=== PATIENT | female | born 1995 | race Caucasian/White ===

== ENCOUNTER 2019-08-29 04:16 | Inpatient (IN) ==
[2019-08-29] MEDS ORDERED: CYTOTEC VAG ONE (04:20)
[2019-08-29] MEDS ORDERED: REGLAN PO ONE (04:20)
[2019-08-29] MEDS ORDERED: PEPCID PO PRN (04:20)
[2019-08-29] MEDS ORDERED: TYLENOL PO PRN (04:20)
[2019-08-29] MEDS ORDERED: STADOL IV PRN ×3 (04:20)
[2019-08-29] MEDS ORDERED: PEPCID PO ONE (04:20)
[2019-08-29] MEDS ORDERED: AMBIEN PO PRN ×2 (04:20→14:01)
[2019-08-29] MEDS ORDERED: BRETHINE SUBQ PRN (04:20)
[2019-08-29] MEDS ORDERED: ZOFRAN IV PRN (04:20)
[2019-08-29] MEDS ORDERED: PEPCID IV PRN (04:20)
[2019-08-29] MEDS ORDERED: KEFZOL 2 GM/D5W 2 GM/50 ML IVPB IV PRN (04:27)
[2019-08-29] MEDS ORDERED: XYLOCAINE-MPF 1% INJ PRN ×2 (04:27→14:01)
[2019-08-29] MEDS ORDERED: MINERAL OIL TOP PRN (04:27)
[2019-08-29] MEDS: LR 1,000 ML IV ONE ×2 (04:30→10:16)
[2019-08-29 04:42] LABS: URINE SOURCE VOIDED
[2019-08-29 04:45] LABS: BASO# 0.02 X1000 (0.0-0.2); BASO% 0.3 % (0.0-0.8); EOS# 0.08 X1000 (0.0-0.7); HEMATOCRIT 34.3 % (37.0-47.0); HEMOGLOBIN 11.6 g/dL (12.0-16.0); IMM GRAN# 0.06 X1000 (0.0-0.04); IMM GRAN% 0.8 % (0.0-0.5); LYMPH% 25.4 % (20.5-51.1); MCH 27.6 PG (27-31); MCHC 33.8 g/dL (33-37); MCV 81.7 FL (81-99); MONO# 0.64 X1000 (0.11-0.59); MONO% 8.1 % (1.7-9.3); MPV 10.9 FL (7.4-10.4); NEUT# 5.08 X1000 (1.4-6.5); NEUT% 64.4 % (42.2-75.2); PLT 169 X1000 (130-400); RDW 13.5 % (11.5-14.5); WBC 7.88 X1000 (4.8-10.8)
[2019-08-29 04:52] LABS: BILIRUBIN URINE NEGATIVE (NEGATIVE); BLOOD URINE NEGATIVE (NEGATIVE); COLOR YELLOW; GLUCOSE URINE NEGATIVE (NEGATIVE); KETONE URINE NEGATIVE (NEGATIVE); LEUKOCYTES URINE LARGE (NEGATIVE); NITRITE URINE NEGATIVE (NEGATIVE); PROTEIN URINE NEGATIVE (NEGATIVE); TURBIDITY URINE HAZY (CLEAR); UROBILINOGEN URINE NORMAL (NORMAL)
[2019-08-29 05:07] LABS: UR AMPHETAMINES QUAL NONE DETECTED (NONE DETECT); UR BARBITUATES QUAL NONE DETECTED (NONE DETECT); UR BENZODIAZEPIN QUAL NONE DETECTED (NONE DETECT); UR CANNABINOIDS QUAL NONE DETECTED (NONE DETECT); UR COCAINE QUAL NONE DETECTED (NONE DETECT); UR METHADONE QUAL NONE DETECTED (NONE DETECT); UR OPIATES QUAL NONE DETECTED (NONE DETECT); UR OXYCODONE QUAL NONE DETECTED (NONE DETECT); UR PCP QUAL NONE DETECTED (NONE DETECT)
[2019-08-29] MEDS ORDERED: PITOCIN 30 UNITS/NS 30 UNIT/500 ML IV.SOLN IV SCH ×2 (10:00→14:15)
[2019-08-29] MEDS ORDERED: FENTANYL-BUPIV-NS 500 MCG-0.125% 250 ML EPIDURAL PRN (10:12)
[2019-08-29] MEDS ORDERED: FENTANYL IV ONE (10:15)
[2019-08-29] MEDS ORDERED: NAROPIN 0.2% INJ ONE (10:15)
[2019-08-29] MEDS ORDERED: LR 3,000 ML ONE (10:16)
[2019-08-29] MEDS ORDERED: BENADRYL PO PRN (14:01)
[2019-08-29] MEDS ORDERED: BOOSTRIX VACCINE IM ONE (14:01)
[2019-08-29] MEDS ORDERED: HYDROXYZINE IM PRN (14:01)
[2019-08-29] MEDS ORDERED: MINERAL OIL PO PRN (14:01)
[2019-08-29] MEDS ORDERED: PERI MEDS (DERMOPLAST/NUPERCAINAL/TUCKS) MISC PRN (14:01)
[2019-08-29] MEDS ORDERED: M-M-R II VACCINE SUBQ ONE (14:01)
[2019-08-29] MEDS ORDERED: PITOCIN IM PRN (14:01)
[2019-08-29] MEDS ORDERED: CYTOTEC PO PRN (14:01)
[2019-08-29] MEDS ORDERED: BENADRYL IV PRN (14:01)
[2019-08-29] MEDS ORDERED: ATARAX PO PRN (14:01)
[2019-08-29] MEDS ORDERED: NORCO-5 PO PRN (14:01)
[2019-08-29] MEDS ORDERED: PITOCIN 20 UNITS/NS 20 UNITS/1,000 ML IV.SOLN IV SCH (14:15)
[2019-08-29] MEDS ORDERED: PITOCIN 20 UNITS/NS 20 UNITS/1,000 ML IV.SOLN ONE (14:20)
--- NOTE | 2019-08-29 14:28 | HISTORY AND PHYSICAL ---
HISTORY OF PRESENT ILLNESS: Mrs. Dorsey is a 23-year-old, G5, P3-0-1-3 at 39 weeks and 1 day who presents to Labor and Delivery for scheduled induction of labor. The patient reports good movement. Denies leakage of fluid, vaginal bleeding, and occasional contractions. labs showed nonreactive RPR, negative gonorrhea, Chlamydia, Hep B nonreactive, HIV nonreactive, rubella immune. GBS negative. Urine tox screen negative and Rh negative. The patient received RhoGAM antepartum. PAST MEDICAL HISTORY: Gallstones, GERD. PAST SURGICAL HISTORY: Cholecystectomy. CURRENT MEDICATIONS: vitamins 1 p.o. daily. Omeprazole 10 mg p.o. daily, Tums. ALLERGIES: No known drug allergies. OBSTETRICAL HISTORY: Obstetrical history G5, P3-0-1-3. First 11/04/2013, spontaneous vaginal delivery 7 pounds 1 ounce, term. No complications. Second 12/12/2015. Spontaneous vaginal delivery 7 pounds 1.9 ounces, term. No complications. Third 11/13/2017, spontaneous vaginal delivery 6 pounds 9.6 ounces, term. No complications. 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 Pap smear negative intraepithelial lesions or malignancies in 2018. Menarche age 12. Denies STD exposure. SOCIAL HISTORY: Denies tobacco, alcohol, or drug use. FAMILY HISTORY: Noncontributory. PHYSICAL EXAMINATION: Vital signs temp 98.7 degrees Fahrenheit, heart rate 81, respiration rate 20, blood pressure 110/64, O2 sats 98% on room air. CARDIOVASCULAR: Regular rate and rhythm. Positive S1, S2. GENERAL: General no acute distress. Alert, awake, oriented x3. RESPIRATORY: Clear to auscultation. No rhonchi, rales, or wheezing. ABDOMEN: Gravid, soft, nontender to palpation. EXTREMITIES: No calf tenderness. +1 pedal edema. VAGINAL EXAM: 2 cm dilated, 50% effaced, -3 station. External monitoring baseline 150 beats per minute, moderate variability, positive accelerations negative decelerations. Artas contractions occurring every 5 to 7 minutes. LABORATORY: WBC 7.8, hemoglobin 11.6, hematocrit 34.4, platelets 169,000. ASSESSMENT: Mrs. Dorsey is a 23-year-old, G5, P3-0-1-3, scheduled for elective induction of labor at 39 weeks and 1 day. PLAN: 1. Admit to Labor and Delivery. 2. Obtain routine labor labs. 3. Continuous electronic monitoring. 4. Induction with Cytotec per vagina 25 mcg x1 dose followed by augmentation with Pitocin as needed and possible artificial rupture of membranes. 5. Continuous electronic monitoring. 6. Patient counseled on risks, benefits, and alternatives. Procedure risks, not limited to infection, bleeding, lacerations, vaginal lacerations, need for vacuum delivery or emergency section. Patient understands the risks and agrees to procedure.
[2019-08-29] MEDS: PERICOLACE PO SCH (21:19)
[2019-08-30] MEDS: MOTRIN PO PRN ×2 (04:01→19:45)
[2019-08-30 05:30] LABS: BASO# 0.01 X1000 (0.0-0.2); BASO% 0.1 % (0.0-0.8); EOS# 0.12 X1000 (0.0-0.7); EOS% 1.4 % (0.0-10.0); HEMATOCRIT 32.1 % (37.0-47.0); HEMOGLOBIN 10.7 g/dL (12.0-16.0); IMM GRAN# 0.05 X1000 (0.0-0.04); IMM GRAN% 0.6 % (0.0-0.5); LYMPH# 1.77 X1000 (1.2-3.4); LYMPH% 20.3 % (20.5-51.1); MCH 27.6 PG (27-31); MCHC 33.3 g/dL (33-37); MCV 82.9 FL (81-99); MONO# 0.74 X1000 (0.11-0.59); MONO% 8.5 % (1.7-9.3); MPV 11.6 FL (7.4-10.4); NEUT# 6.05 X1000 (1.4-6.5); NEUT% 69.1 % (42.2-75.2); PLT 174 X1000 (130-400); RBC 3.87 XMIL (4.2-5.4); RDW 13.3 % (11.5-14.5); WBC 8.74 X1000 (4.8-10.8)
--- NOTE | 2019-08-30 08:05 | OB/GYN PROGRESS NOTE ---
- Subjective Patient without complaint, ppd #1, circumcision discussed and all questions answered and patient wishes to proceed OB Physical Exam Vital Signs - 8 hr 08/30/19 03:58 Temperature 97.9 F Pulse Rate 71 Respiratory Rate 18 Blood Pressure 114/73 O2 Sat by Pulse Oximetry 100 - CONSTITUTIONAL General Appearance: appears well, alert, no apparent distress - EYES Eyes: PERRL/EOMI - HEAD, EARS, NOSE, MOUTH & THROAT HENMT: normocephalic/atraumatic - RESPIRATORY Respiratory: no respiratory distress - CARDIOVASCULAR Cardiovascular: regular rate, rhythm - CHEST (BREASTS) Chest/Breast: deferred - NEUROLOGIC Neurologic: grossly normal - PSYCHIATRIC Psych/Mental Status: normal mood/affect, oriented x 3 Active Medications Generic Name Dose Route Start Last Admin Trade Name Freq PRN Reason Stop Dose Admin Acetaminophen 650 mg 08/29/19 04:20 Tylenol PO Q4-6H PRN PRN Headache Hydrocodone Bitart/Acetaminophen 1 each 08/29/19 14:01 [place]-5 PO Q3-4H PRN PRN Pain (1-6 on Pain Scale) Benzocaine 1 each 08/29/19 14:01 Hollie Meds (Dermoplast/Nupercainal/Tucks) MISC 3-4XDAY PRN PRN episiotomy/hemorrhoids Diphenhydramine HCl 12.5 mg 08/29/19 14:01 Benadryl IV Q4H PRN PRN Itching Diphenhydramine HCl 25 mg 08/29/19 14:01 Benadryl PO Q4H PRN PRN Itching Famotidine 20 mg 08/29/19 04:20 Pepcid PO Q12H PRN PRN GI upset or indigestion Famotidine 20 mg 08/29/19 04:20 Pepcid IV Q12H PRN PRN GI upset or indigestion Hydroxyzine HCl 50 mg 08/29/19 14:01 Hydroxyzine IM Q3-4H PRN PRN Nausea Hydroxyzine HCl 50 mg 08/29/19 14:01 Atarax PO Q3-4H PRN PRN Nausea Oxytocin/Sodium Chloride 20 units in 1,000 mls @ 0 mls/hr 08/29/19 14:15 Pitocin 20 Units/Ns IV .Q0M MAURA As Directed Ibuprofen 800 mg 08/29/19 14:01 02/07/20 04:01 Motrin PO 800 mg Q8H PRN PRN Administration cramping Mineral Oil 30 ml 08/29/19 14:01 Mineral Oil PO PRN PRN Perineal massage Misoprostol 800 microgm 08/29/19 14:01 Cytotec PO PRN PRN Severe bleeding Ondansetron HCl 4 mg 08/29/19 04:20 Zofran IV PRN PRN Nausea Oxytocin 20 unit 08/29/19 14:01 Pitocin IM PRN PRN Severe bleeding Senna/Docusate Sodium 1 each 08/29/19 21:00 08/29/19 21:19 Pericolace PO 1 each QHS MAURA Administration Zolpidem Tartrate 10 mg 08/29/19 14:01 Ambien PO HS PRN PRN Sleep Laboratory Results - last 24 hr 08/30/19 08/30/19 05:04 05:04 WBC 8.74 RBC 3.87 L Hgb 10.7 L Hct 32.1 L MCV 82.9 MCH 27.6 MCHC 33.3 RDW Std Deviation 13.3 Plt Count 174 MPV 11.6 H Immature Gran % (Auto) 0.6 H Neut % (Auto) 69.1 Lymph % (Auto) 20.3 L Cocke % (Auto) 8.5 Eos % (Auto) 1.4 Baso % (Auto) 0.1 Immature Gran # (Auto) 0.05 H Neut # (Auto) 6.05 Lymph # (Auto) 1.77 Cocke # (Auto) 0.74 H Eos # (Auto) 0.12 Baso # (Auto) 0.01 ABO/Rh O NEGATIVE RhIG Candidate? NO OB Assessment & Plan (1) Normal course Status: Acute Plan: routine care
[2019-08-31] MEDS: PERICOLACE PO SCH (01:22)
[2019-08-31 09:15] VITALS: BP 111/68
--- NOTE | 2019-09-01 08:04 | DISCHARGE SUMMARY ---
ADMISSION DATE: 08/29/2019 DISCHARGE DATE: 08/31/2019 ADMITTING DIAGNOSES: 1. at 39 and 1/7 weeks gestation. 2. Multigravida. 3. Medical induction of labor. DISCHARGE DIAGNOSES: 1. at 39 and 1/7 weeks gestation. 2. Multigravida. 3. Medical induction of labor. 4. Live-born delivered. BRIEF HISTORY AND HOSPITAL COURSE: The patient is a 23-year-old, 5, para 3, now 4, who is admitted for Cytotec induction. She undergoes a Cytotec induction at 39 and 1/7 weeks gestation, followed by augmentation with oxytocin, and a normal spontaneous vaginal delivery. Please see separate delivery note. course was uncomplicated. day #1, she is afebrile with stable vital signs. She is ambulating, voiding, tolerating a regular diet. Hemoglobin 10.7, down from 11.6. On day #2, ambulating, voiding, tolerating a regular diet. Vital signs stable, afebrile. She is discharged home in stable condition. She is asked to follow up in the office in 6 weeks. Call the office for pain, fever greater than 100.4, abnormal uterine bleeding. Maintain pelvic rest and regular diet. Continue vitamins and iron. A prescription for Motrin was provided.
--- NOTE | 2019-09-06 05:45 | OPERATIVE NOTE ---
PROCEDURE DATE: 08/29/2019 SURGEON: Reyna Diane MD. NURSE INSTRUCTOR: None. PROCEDURE PERFORMED: Spontaneous vaginal delivery. DESCRIPTION OF PROCEDURE: The patient delivered a viable male weighing 8 pounds 6 ounces with Apgars of 9 and 10 at 1 and 5 minutes respectively. The vertex was delivered spontaneously over intact perineum. A loose nuchal cord x1 was identified and reduced. The anterior shoulder was delivered atraumatically by maternal expulsive efforts with the assistance of downward traction. The posterior shoulder was delivered with maternal expulsive efforts and upward traction. The remainder of the fetus delivered spontaneously, and placed on patient's abdomen where the fetus was assessed by awaiting narrow fabric calenderer staff. Upon delivery, the cord was clamped and cut. Cord blood was obtained for blood gas analysis. The placenta delivered spontaneously intact with a three-vessel cord to enhance uterine contractions, IV oxytocin was administered. The cervix, vagina, and perineum were inspected for lacerations. No lacerations were identified. Estimated Blood Loss was 200 mL. The counts were noted to be correct x2 postprocedure.
== END 2019-08-31 10:35 | disposition home or self-care (01) | DRG 807 ==
LOC: LD 04:16
PROVIDERS: ADMIT Obstetrics & Gynecology; ATTEND Obstetrics & Gynecology